=== PATIENT | male | born 1965 | race Caucasian/White ===

== ENCOUNTER 2017-05-17 15:10 | Emergency (ER) | payer OTHER ==
--- NOTE | 2017-05-17 21:16 | RAD ---
RIGHT CALCANEUS 05/17/17 A lateral and axial view of the calcaneus were obtained. A longitudinal fracture is seen through the anterior body of the calcaneus that starts centrally and then angulates towards the medial aspect o f the bone. While there is one main fracture line, there appears to be more than one fracture line i nvolved. There is minimal displacement. IMPRESSION: Calcaneal fracture. POS: HOME
--- NOTE | 2017-05-17 21:21 | RAD ---
RIGHT FOOT THREE VIEWS 05/17/17 While not shown as well as the dedicated calcaneal films, one can see that a calcaneal fracture is p resent. The remainder of the foot appeared intact. The tarsometatarsal junction seemed normal. The m etatarsals themselves appear intact. IMPRESSION: Calcaneal fracture. POS: HOME
--- NOTE | 2017-05-17 21:47 | RAD ---
RIGHT ANKLE THREE VIEWS 05/17/17 A bony abnormality is seen below the tip of the fibula along the lateral aspect of the calcaneus. Ot her films have shown that this is due to a calcaneal fracture. One gets some sense of it on the late ral view of the ankle, but it can be seen much better on the dedicated calcaneal views. The ankle mo rtise itself appears intact. The ankle joint space appears normal. On the lateral view of the ankle there is a dick of bone just anterior to the tibiotalar joint. Thi s is too high to be related to the patient's calcaneal fracture. It is possible that there has been a tiny avulsion from the tibia or talus in addition. MRI or CT might be better at telling if this ti ny fragment is related to the acute injury. IMPRESSION: 1. Calcaneal fracture, best viewed on other studies. 2. Small dick of bone anterior to the tibiotalar joint. See discussion above. POS: HOME
== END 2017-05-17 17:07 | disposition home or self-care (01) ==
LOC: BURERS 15:10
DX: S92.011A Displaced fracture of body of right calcaneus, initial encounter for closed fracture (principal); W11.XXXA Fall on and from ladder, initial encounter
CPT/HCPCS: 29515; 96374; 96376; J2270

== ENCOUNTER 2017-07-08 23:41 | Emergency (ER) | payer OTHER ==
[2017-07-09] MEDS ORDERED: Hydrocodone-Acetamin 15 ML UDCUP ONE ×2 (00:05→00:06)
== END 2017-07-09 00:10 | disposition home or self-care (01) ==
LOC: BURERS 23:41
DX: M79.671 Pain in right foot (principal); Z98.890 Other specified postprocedural states
CPT/HCPCS: 99283

== ENCOUNTER 2017-09-08 09:11 | Emergency (ER) | payer OTHER ==
[2017-09-08] MEDS ORDERED: Morphine 4 MG/ML Carpuject ONE (09:30)
[2017-09-08] MEDS ORDERED: Ketorolac Tromethamine 60 MG/2 ML VIAL ONE (09:31)
== END 2017-09-08 11:12 | disposition home or self-care (01) ==
LOC: BURERS 09:11
DX: M10.9 Gout, unspecified (principal); K21.9 Gastro-esophageal reflux disease without esophagitis; Z79.899 Other long term (current) drug therapy
CPT/HCPCS: 96372; J1885; J2270

== ENCOUNTER 2018-03-29 09:39 | Emergency (ER) | payer OTHER ==
[2018-03-29] MEDS ORDERED: hydrOXYzine 25 MG TAB ONE (09:50)
[2018-03-29] MEDS ORDERED: methylPREDNISolone Sod Succ/PF 125 MG/2 ML VIAL ONE (09:51)
== END 2018-03-29 10:00 | disposition home or self-care (01) ==
LOC: BURERS 09:39
DX: L23.7 Allergic contact dermatitis due to plants, except food (principal); M10.9 Gout, unspecified; K21.9 Gastro-esophageal reflux disease without esophagitis; Z79.899 Other long term (current) drug therapy
CPT/HCPCS: 96372; J2930

== ENCOUNTER 2022-11-01 08:30 | Emergency (ER) | payer OTHER ==
[2022-11-01] MEDS ORDERED: Lidocaine 1% PF 5 ML VIAL ONE (09:18)
== END 2022-11-01 09:38 | disposition home or self-care (01) ==
LOC: BURERS 08:30
DX: S90.551A Superficial foreign body, right ankle, initial encounter (principal); S90.01XA Contusion of right ankle, initial encounter; K21.9 Gastro-esophageal reflux disease without esophagitis; M10.9 Gout, unspecified; W45.8XXA Other foreign body or object entering through skin, initial encounter
CPT/HCPCS: 99283

== ENCOUNTER 2025-06-05 13:51 | Emergency (ER) | payer OTHER | END 2025-06-05 14:30 | disposition home or self-care (01) | LOC: BURERS 13:51 | DX: M72.2 Plantar fascial fibromatosis (principal); M54.42 Lumbago with sciatica, left side; K21.9 Gastro-esophageal reflux disease without esophagitis; Z79.899 Other long term (current) drug therapy | CPT/HCPCS: 99283 ==